=== PATIENT | male | born 1945 | race Two or more races ===

== ENCOUNTER 2021-01-01 07:45 | Inpatient (IN) | payer OTHER ==
[~2021-01-01] VITALS: Ht 162.6 cm; Wt 92.5 kg
[2021-01-01] MEDS ORDERED: TESSALON PERLE100 M1 PO (10:34)
[2021-01-01] MEDS ORDERED: UROXATRAL10 MG PO (10:35)
[2021-01-07] MEDS ORDERED: PRAVASTATIN SOD80 MG (13:17)
[2021-01-07] MEDS ORDERED: INDAPAMIDE2.5 MG (13:17)
[2021-01-07] MEDS ORDERED: LOSARTAN POTAS100 MG (13:18)
[2021-01-07] MEDS ORDERED: METOPROLOL SUC100 MG (13:18)
[2021-01-09] MEDS ORDERED: XARELTO10 MG PO (07:49)
[2021-01-09] MEDS ORDERED: INTEGRA PLUS C1 EACH PO (07:49)
[2021-01-09] MEDS ORDERED: OXYC1TAB9 PO (07:49)
[2021-01-09] MEDS ORDERED: BACTRIM DS TAB1 EACH PO (07:49)
== END 2021-01-10 15:12 | DRG 470 ==
LOC: SURH 01-07 07:15 → O/R 01-07 08:16 → SURH 01-07 16:01
PROVIDERS: ADMIT Orthopaedic Surgery Sports Medicine; ATTEND Orthopaedic Surgery Sports Medicine
PROC: 0SRC0J9 Replacement of Right Knee Joint with Synthetic Substitute, Cemented, Open Approach (ICD-10-PCS; principal; 2021-01-07 07:15)
DX: M17.11 Unilateral primary osteoarthritis, right knee (principal); Z20.822 Contact with and (suspected) exposure to COVID-19